=== PATIENT | male | born 1945 | race Caucasian/White ===

== ENCOUNTER 2020-08-15 09:02 | Emergency (ER) | payer MEDICARE, SELFPAY ==
[2020-08-15 09:03] VITALS: BP 136/97; PULSE 69; RESP 15; TEMP 35.9; O2SAT 98; BMI 29.9
[2020-08-15] MEDS: Fluorescein 1 MG STRIP 1 STRIP RIGHT EYE (09:18)
[2020-08-15] MEDS: Tetracaine 0.5% Ophthalmic Bottle 1 DRP RIGHT EYE (09:19)
--- NOTE | 2020-08-15 09:21 | ED.VIS.EYE ---
History of Present Illness Chief Complaint: Eye Problem Informant: Patient Location: Right Eye Onset: Today Context: Gradual Onset Timing: Continuous Current Severity: Mild Maximum Severity: Mild Worsened by: Nothing Relieved by: Nothing Associated Symptoms - Eyes: Burning, Foreign body sensation History of injury: Uncertain Visual correction: Glasses Narrative: 74-year-old male presents to the emergency department with a foreign body sensation in his right eye. He woke up this morning with a foreign body sensation in his right eye. He had no trauma to his eye this morning. 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 He thinks he could have gotten something in his eye at that time however last evening he did not have any significant pain or foreign body sensation. He woke up this morning with worsening symptoms. He has not had any loss of vision visual changes and he has no symptoms in his left eye. Rest of his review of systems at this time are negative. Prior similar symptoms: Yes Recent Illness/Hospitalization: No Past Medical History - Allergies and Home Meds Allergies/Adverse Reactions: Allergies No Known Allergies Allergy (Verified 08/15/20 09:04) Primary Care Physician: Ivy Desai MD [Primary Care Provider] - Acosta Mendez MD [STAFF PHYSICIAN] - 3-5 Days Prior records reviewed: Yes Past Medical History: - - Patient denies any significant past medical history Surgical History: noncontributory Lives: With Family Smoking Status: Never smoker Alcohol: Occasional Drugs: None Review of Systems All systems negative except as indicated General: Denies: Chills, Fever, Sweats Eyes: Reports: - - Right eye foreign body sensation. Denies: Visual changes - bilaterally, Blurred Vision - bilaterally, Diplopia ENT: Denies: Rhinorrhea, Sore throat Cardiovascular: Denies: Chest pain, Palpitations Respiratory: Denies: Dyspnea, Cough, Dyspnea on exertion Gastrointestinal: Denies: Abdominal pain, Nausea, Vomiting, Diarrhea, Melena, Hematochezia Genitourinary: Denies: Dysuria, Hematuria, Frequency Musculoskeletal: Denies: Back pain, Extremity Pain Skin: Denies: Rash, Wounds Neurological: Denies: Headache, Weakness, Numbness Physical Exam Visual Acuity: left: 20/40 - 20/40 right eye and left eye, bilateral: 20/30 - 20/30 both eyes Visual Acuity: Corrected Eyelid: Normal inspection, Right eyelid everted, No foreign body Right Conjunctiva/Sclera: Normal inspection, No foreign body Left Conjunctiva/Sclera: Normal inspection, No foreign body Right Cornea: No foreign body, Tetracaine instilled, Corneal abrasion, Fluorescein dye uptake, - - Negative ulcer negative Marquita sign negative foreign body negative laceration Left Cornea: Normal inspection Extraocular Motion: Normal exam, No pain, No palsy, No nystagmus Anterior chamber: Normal exam, Deep and quiet Posterior Segment: Normal fundoscopic exam, Exam limited by miosis Vital Signs/Narrative: Vital Signs Temp Pulse Resp BP Pulse Ox 08/15/20 09:03 96.7 F L 69 15 136/97 H 98 Inital Vital Signs reviewed: Yes General: Well nourished, Well developed Head: Normocephalic, Atraumatic ENT: Moist mucous membranes, No rhinorrhea Neck: Supple, Nontender Cardiovascular: Regular rate, Regular rhythm, No murmurs Respiratory: No distress, CTA bilaterally, Chest nontender Abdomen: Soft, Nontender, Nondistended, Normal bowel sounds Back: Nontender, Normal Inspection Extremities: Nontender, No edema Skin: Normal color, No rash Neurological: Alert, Oriented x3, Cranial nerves II-XII grossly intact, Normal Strength, Normal Sensation Psychological: Normal affect Diagnostic/Tx/Re-eval - Treatment and Re-Evaluation Tetracaine: right eye Antibiotic: right eye - Medical Decision Making Visual acuity was within normal limits with his glasses on. Tetracaine instilled into right eye. Patient had improvement of symptoms. Fluorescein dye instilled into right eye. There is a small abrasion at 9:00 noted. No foreign bodies. No Marquita sign. Eyelid everted without foreign body seen. Patient reassured. He will be placed on erythromycin ophthalmic. 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 He was advised that if he develops worsening symptoms prior to that to return to the emergency department. Patient agreeable with plan of care. All questions were answered. He was discharged home ED Disposition - Plan for ED Patient: Disposition: Home or Assisted Living Diagnosis: Corneal abrasion, right Instructions: ED Corneal Abrasion Prescriptions: Erythromycin Ophthalmic 1 applic RIGHT EYE TID #1 tube Prescription Printed Referrals: Ivy Desai MD [Primary Care Provider] - Acosta Mendez MD [STAFF PHYSICIAN] - 3-5 Days
--- NOTE | 2020-08-15 09:32 | ED.VISSUMM ---
- ER Visit Summary Date of Service: 08/15/20 Chief Complaint: [Right eye discomfort and foreign body sensation] History of Present Illness: The patient is a 74 M [male presents to the emergency department with discomfort in the right eye. Patient was seen with nurse practitioner Pedrito Cleary. The eyelids were everted no foreign bodies noted. I was stained with floor seen after tetracaine was instilled in the right eye. Nurse practitioner thought there might be a corneal abrasion at 9 o'clock position. 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 Denies any vision changes.] Physical Examination: [HEENT-PERRLA, EOMI. Cranial nerves II through XII grossly intact. TMs clear. Mucous membranes moist. No adenopathy. Right eye-eyelids everted and no foreign bodies noted. Using a slit lamp I was able to evaluate the cornea and there is a corneal abrasion noted at the 9 o'clock position near the limbus. No foreign bodies noted within the abrasion. Cardiovascular-regular rate and rhythm without murmur or ectopy Lungs-clear to auscultation, chest wall stable without crepitus or subcu emphysema Abdomen-normoactive bowel sounds, soft, nontender, no rebound or rigidity, no peritoneal signs. Extremities-intact ?4, normal range of motion, normal pulses, atraumatic] Test Results: [] Emergency Department Course and Treatment: [Patient received gentamicin ophthalmic drops.] Treatment Plan: [Patient to follow-up with ophthalmology in 2 days for a wound check.] Disposition: [Discharged home in stable condition] Impression: [Right eye corneal abrasion] This note was generated with [employer] dictation software. It may contain incorrect words, spelling, and punctuation that were not noted in review of the chart prior to signing ED Disposition - Plan for ED Patient: Disposition: Home or Assisted Living Diagnosis: Corneal abrasion, right Instructions: ED Corneal Abrasion Prescriptions: Erythromycin Ophthalmic 1 applic RIGHT EYE TID #1 tube Prescription Printed Referrals: Ivy Desai MD [Primary Care Provider] - Acosta Mendez MD [STAFF PHYSICIAN] - 3-5 Days
== END 2020-08-15 09:56 | disposition home or self-care (01) ==
LOC: ED 09:42
PROVIDERS: Emergency Provider Physician Assistant Medical; PCP Internal Medicine
DX: S05.01XA Injury of conjunctiva and corneal abrasion without foreign body, right eye, initial encounter (principal); X58.XXXA Exposure to other specified factors, initial encounter; Y93.9 Activity, unspecified; Y92.9 Unspecified place or not applicable
CPT/HCPCS: 99283

== ENCOUNTER 2020-10-10 12:21 | Emergency (ER) | payer MEDICARE, SELFPAY ==
[2020-10-10 12:23] VITALS: BP 132/77; PULSE 94; RESP 24; TEMP 36.4; O2SAT 95; BMI 24.1
[2020-10-10 12:39] VITALS: O2SAT 95
--- NOTE | 2020-10-10 12:46 | ED.DCSUM_ITS ---
- ER Visit Summary Date of Service: 10/10/20 Chief Complaint: Cough History of Present Illness: The patient is a [address] Desai. He reports that he has had a cough for the past 10 days. He tested positive for Covid approximately 1 week ago. States his cough is productive yellow sputum without blood. He denies any fever, chills, chest pain, or shortness of breath at rest. He reports that he is mildly short of breath when I walk all over the place. He has been quarantining. He denies any other complaints. Physical Examination: Vitals: Stable. Afebrile. General: Well-nourished and well-developed. Head: Normocephalic atraumatic. Neck: Supple, no lymphadenopathy. No JVD. Nontender. Cardiovascular: Regular rate and rhythm. No murmurs. Respiratory: No respiratory distress. Clear to auscultation bilaterally. Abdominal: Soft, nontender, nondistended, normal bowel sounds. No guarding, rebound, or peritoneal signs. Back: Nontender. Extremities: Nontender, no edema. Skin: Normal color, no rash. Neurologic: Alert and oriented ?3. Cranial nerves II through XII are intact. Normal strength and sensation. Psych: Normal affect. Test Results: CBC shows segmented neutrophils 81 lymphocytes of 10. Chem-7 shows a sodium 135 and calcium of 8.3. One view chest x-ray read by the radiologist is an early left lower lobe infiltrate. In my opinion there is no acute disease. Emergency Department Course and Treatment: Patient is resting comfortably. Ambulatory pulse ox is 96%. The patient was treated with doxycycline. Treatment Plan: Patient will be discharged with doxycycline. Instructed to continue to quarantine. Instructed to follow-up with his primary care physician in 10 to 14 days if not improving. Return to the emergency department for any worsening symptoms. Disposition: To home in improved and stable condition. Impression: One. COVID-19 positive. This note was generated with [employer] dictation software. It may contain incorrect words, spelling, and punctuation that were not noted in review of the chart prior to signing ED Disposition - Plan for ED Patient: Instructions: ED Upper Resp Infec Abx Tx Prescriptions: Doxycycline 100 mg PO BID #14 capsule Referrals: Ivy Desai MD [Primary Care Provider] - 10-14 Days if not better
--- NOTE | 2020-10-10 12:49 | RAD_ITS ---
STUDY: X-RAY CHEST REASON FOR EXAM: Male, 74 years old. COVID +, and quot;I THINK I NEED AN XRAY. and quot; COMPLAINS OF INCREASE IN FATIGUE. TECHNIQUE: Frontal view of the chest COMPARISON: None. FINDINGS: There is an ill-defined left mid and lower lung zone opacity. Remainder the lungs are clear. There is no pneumothorax, pulmonary edema, cardiomegaly or pleural effusions. Sternotomy wires and coronary graft is present. Osseous structures are intact. RAD/Chest 1 View (Portable) IMPRESSION: Probably early left lower lung pneumonia. Electronically Signed: Lenin Tripp, at 13:14 EST Tel , Service support ,
[2020-10-10 13:16] LABS: Absolute Lymphocyte Count 0.48 X10^3/uL (0.83-4.51); Absolute Neutrophil Count 3.8 X10^3/uL (2.0-7.7); Basophil# 0.02 X10^3/uL; Basophil% 0.4 % (0-1); Hematocrit 46.5 % (40-54); Hemoglobin 15.6 g/dL (13.0-16.5); Lymphocyte # 0.48 X10^3/ul (4.0); Lymphocyte % 10.2 % (19-41); Mean Corp Hgb Conc 33.5 g/dL (32-36); Mean Corpuscular Hgb 31.8 pg (27.0-32.0); Mean Corpuscular Volume 94.7 fL (80-94); Mean Platelet Vol. 10.9 fl (6.2-12.0); Monocyte# 0.38 X10^3/uL; Monocyte% 8.1 % (0-10); NRBC Flagged by Analyzer 0 % (0-5); Neutrophil # 3.82 X10^3/uL (2.7-7.7); Neutrophil % 81.1 % (47-70); POSITIVE DIFFERENTIAL YES; Platelet Count 152 K/mm3 (150-450); RBC Distribution Width CV 12.7 % (11.6-14.6); RBC Distribution Width SD 44.4 fl (35.1-43.9); Red Blood Count 4.91 M/mm3 (4.6-6.2); White Blood Count 4.7 K/mm3 (4.4-11.0)
[2020-10-10 13:20] LABS: Differential Indicated SCAN CRITERIA MET
[2020-10-10 13:28] LABS: Anion Gap 6 (5-15); BUN 17 mg/dL (7-18); BUN/Creat Ratio 20.5 RATIO (10-20); Calcium,Total 8.3 mg/dL (8.5-10.1); Chloride 105 mmol/L (98-107); Creatinine, Serum 0.83 mg/dL (0.70-1.30); EST Glomerular Filtration Rate 96 mL/min (>60); Est Glom Filt Rate - Afr Amer 116 mL/min (>60); Estimated Creatinine Clearance 67.92 ml/min; Glucose 98 mg/dL (74-106); Sodium Level 135 mmol/L (136-145)
[2020-10-10 13:34] LABS: Differential Comment SCANNED
[2020-10-10 13:45] VITALS: O2SAT 97
[2020-10-10 13:47] VITALS: BP 158/75; PULSE 74; RESP 20; O2SAT 97
[2020-10-10] MEDS: Doxycycline 100 MG CAPSULE PO (14:23)
[2020-10-10 14:24] VITALS: BP 118/88
== END 2020-10-10 14:24 | disposition home or self-care (01) ==
LOC: ED 13:28
PROVIDERS: Emergency Provider Emergency Medicine; PCP Internal Medicine
DX: U07.1 COVID-19 (principal); I10 Essential (primary) hypertension; I25.10 Atherosclerotic heart disease of native coronary artery without angina pectoris; E78.00 Pure hypercholesterolemia, unspecified; Z95.1 Presence of aortocoronary bypass graft; Z79.82 Long term (current) use of aspirin; Z79.899 Other long term (current) drug therapy; Z87.891 Personal history of nicotine dependence
CPT/HCPCS: 71045; 80048; 85025; 99285; A4216

== ENCOUNTER 2022-05-27 09:07 | Emergency (ER) | payer MEDICARE, SELFPAY ==
[2022-05-27 09:07] VITALS: BP 147/73; PULSE 66; RESP 16; TEMP 36.6; O2SAT 95; BMI 29.7
--- NOTE | 2022-05-27 09:22 | RAD_ITS ---
STUDY: X-RAY - LUMBAR SPINE REASON FOR EXAM: Male, 76 years old. Lower back pain TECHNIQUE: 3 view(s) of the lumbar spine were obtained. COMPARISON: Comparison is made with prior study dated 10/13/2016. FINDINGS: Normal lumbar lordosis. There is no substantial scoliosis. Grade 1 anterior listhesis of L4 on L5. There is multilevel endplate spondylosis of the lumbar vertebrae. There is multi-level degenerative disc disease with multi-level disc space narrowing. There is atherosclerotic calcification of the abdominal aorta without a demonstrated aneurysm. RAD/Lumbar Spine 2 or 3 Views IMPRESSION: Degenerative changes of the spine, as detailed above. Stable anterior listhesis of L4 on L5. There is been no change since prior study. Electronically Signed: Vel Thrasher MD at 10:34 EDT ,
--- NOTE | 2022-05-27 09:23 | EDS_ITS ---
HPI <MAGDA Mortensen - Last Filed: 05/27/22 10:44> History of Present Illness Chief Complaint: Flank Pain Narrative Narrative: 76-year-old male with history of hyper tension, hyperlipidemia presents to the emergency department with ongoing lower back pain. Patient states the pain is is much worse when he gets out of bed in the morning, he takes a Tylenol, a Pyridium, eats breakfast, and then the pain relieves itself. Today, the patient complains of lingering pain to his lower back and is here for evaluation. Patient denies any known injury, patient has been taking Pyridium for several years because he thinks that this is what he takes when he feels like he has a urinary tract infection. Patient when at rest is in no pain, patient has worsening pain with any bending or rotation. Denies any weakness to his lower extremities, bowel or bladder incontinence, fever chills PFSH <MAGDA Mortensen - Last Filed: 05/27/22 10:44> PFSH Medical History (Updated 05/27/22 @ 10:44 by MAGDA Mortensen) Kidney stones Home Medications aspirin 81 mg chewable tablet 81 mg PO DAILY@0800 10/10/20 [History Last Taken Unknown] atorvastatin 40 mg tablet 40 mg PO QHS 10/10/20 [History Last Taken Unknown] carvedilol 3.125 mg tablet 3.125 mg PO BID 10/10/20 [History Last Taken Unknown] cholecalciferol (vitamin D3) 25 mcg (1,000 unit) capsule 25 mcg PO DAILY 05/27/22 [History Last Taken Unknown] Allergy/AdvReac Type Severity Reaction Status Date / Time No Known Allergies Allergy Verified 05/27/22 09:09 Surgical History (Updated 05/27/22 @ 09:30 by Rula Soler) H/O heart bypass surgery Social History Smoking Status: Former smoker ROS <MAGDA Mortensen - Last Filed: 05/27/22 10:44> ROS ED ROS Narrative Constitutional: Negative for fever, chills, weight loss, weakness Eyes: Negative for vision loss, vision change, double vision ENT: Negative for any sore throat, ear pain, congestion Cardiovascular: Negative for any chest pain, tightness, palpitations Respiratory: Negative for any cough, sputum production, hemoptysis, dyspnea, dyspnea on exertion, orthopnea Gastrointestinal: Negative for any abdominal pain, nausea, vomiting, diarrhea, constipation, blood in stool, blood in vomit : Negative for any urinary frequency, dysuria, retention, blood in urine Muscle skeletal: Negative for any muscle joint pain, stiffness, myalgias, arthralgias, neck pain. Positive for back pain Neurological: Negative for any headache, syncope, numbness or tingling, dizziness Skin: Negative for any rashes, lumps, itching, abrasions, lacerations Psychiatric: Negative for any depression, anxiety, stress, suicidal ideation, homicidal ideation Hematologic: Negative for any easy bruising, excessive bruising, easy bleeding Allergies: Negative for any eczema, hives, rash EXAM <MAGDA Mortensen - Last Filed: 05/27/22 10:44> Physical Exam Narrative Exam Narrative: Vital signs reviewed. HEET: Head normocephalic atraumatic, TMs clear bilaterally. Posterior pharynx is clear, moist mucous membranes. Nares clear bilaterally. Neck: Supple with no lymphadenopathy or tenderness. No signs of meningismus, negative jolt sign. Cardiac: Regular rate and rhythm no murmurs gallops or rubs, equal peripheral pulses bilaterally. Respiratory: Lungs clear to auscultation bilaterally. No chest tenderness. Abdomen: Soft, nontender, nondistended. No abdominal bruit or pulsatile masses. No hepatosplenomegaly Extremities: No peripheral edema, no signs of gross trauma or deformity. Active full range of motion of all extremities. Equal strength bilaterally Neuro: Cranial nerves II through XII intact, no focal neurological deficits. Skin: Clean dry and intact with no rash, purpura, petechiae, vesicles or pustules. Backs/flank: No CVA tenderness, no midline spinal tenderness, no deformity. No pain on palpation. Negative for any signs of trauma. Psych: Normal mood and affect. No SI, HI or acute psychosis. Const Vital Signs: 05/27/22 09:07 Temperature 97.8 F Temperature Source Temporal Pulse Rate 66 Respiratory Rate 16 Blood Pressure 147/73 H Blood Pressure Mean 97 Pulse Ox 95 Oxygen Delivery Method Room Air <Dr. Edgar Mata MD - Last Filed: 05/27/22 11:05> Physical Exam Const Vital Signs: 05/27/22 09:07 Temperature 97.8 F Temperature Source Temporal Pulse Rate 66 Respiratory Rate 16 Blood Pressure 147/73 H Blood Pressure Mean 97 Pulse Ox 95 Oxygen Delivery Method Room Air [facility] <MAGDA Mortensen - Last Filed: 05/27/22 10:44> [facility] Lab Data Labs: Laboratory Results - last 24 hr 05/27/22 10:00 Urine Color SEE COMMENT BELOW Urine Clarity Sl. Cloudy Urine pH 6.5 Ur Specific [place] 1.010 Urine Protein Negative Urine Glucose (UA) Normal Urine Ketones Negative Urine Occult Blood Negative Urine Nitrite Positive H Urine Bilirubin 6 H Urine Urobilinogen 12 H Ur Leukocyte Esterase 25 H Urine RBC 0 SEEN Urine WBC 0 SEEN Ur Squamous Epith Cells 0-5 SEEN Urine Bacteria 0 SEEN Urine Mucus 0 SEEN Radiography Diagnostic Testing: Clinical Impression(s) from Imaging Studies Lumbar Spine X-Ray 05/27/22 09:22 IMPRESSION: Degenerative changes of the spine, as detailed above. Stable anterior listhesis of L4 on L5. There is been no change since prior study. Electronically Signed: Vel Thrasher MD at 10:34 EDT , Treatment and Re-Evaluation Narrative: Patient appears well, patient appears nontoxic, vital signs are stable. Patient presents to the emergency department with complaints of left lower back pain. Patient did receive a urinalysis, it was positive for nitrates, leukocyte Estrace of 25 however there is no red blood cells, white blood cells or bacteria. This was sent for culture. Patient's physical examination was consistent with a muscle skeletal lumbar strain. The patient did receive x-rays of the lower lumbar spine, this was interpreted by the ER physician and show some degenerative changes of the spine stable anterior listhesis of L4 on L5. There is been no change since the prior study. At this time, patient be diagnosed with a muscle skeletal lumbar strain, he is instructed to continue to use Tylenol as well as perform gentle stretching, ice and heat. He is instructed to return for any worsening symptoms. His physical examination yielded no red flag signs, patient is stable for discharge. <Dr. Edgar Mata MD - Last Filed: 05/27/22 11:05> [facility] Narrative Medical decision making narrative: I have personally performed a face to face assessment of the patient and have reviewed the DARCIE Note. I performed a substantive portion of the visit including all aspects of the following. My becerra findings include: History is consistent with left lower back pain. Its not really flank this is very low in the back. This been going on for a week or so. He has had it before. Normally he gets up in the morning and it sore but he takes Tylenol and moves around he gets better. It took a little longer to get better this morning. Patient does tell me that he has been carrying a lot of firewood up and down his steps to store it for the winter. He has not fallen or twisted but it is sore when he does this. If he leans forward the back pain is worse. It is better if he lays back. He has no numbness tingling weakness bowel or bladder dysfunction. He has tried Pyridium because he had symptoms like this once with a UTI but he has no urinary symptoms whatsoever. No fevers or chills. Exam is mild low lumbar paraspinal tenderness. No CVA tenderness. No skin c hanges. No buttock or sciatic notch tenderness. Normal strength and gait and sensation distally. Abdomen is completely benign. No mass or bruit. Medical Decison Making x-ray shows some arthritic changes. Urine has some nitrites but 0 white cells. He has no urinary symptoms. We will send this for culture but I will not treat this acutely. I think his symptoms are really myofascial strain from increased lifting and carrying of firewood up and down steps multiple times a day for the past week. Lab Data Labs: Laboratory Results - last 24 hr 05/27/22 10:00 Urine Color SEE COMMENT BELOW Urine Clarity Sl. Cloudy Urine pH 6.5 Ur Specific [place] 1.010 Urine Protein Negative Urine Glucose (UA) Normal Urine Ketones Negative Urine Occult Blood Negative Urine Nitrite Positive H Urine Bilirubin 6 H Urine Urobilinogen 12 H Ur Leukocyte Esterase 25 H Urine RBC 0 SEEN Urine WBC 0 SEEN Ur Squamous Epith Cells 0-5 SEEN Urine Bacteria 0 SEEN Urine Mucus 0 SEEN Radiography Diagnostic Testing: Clinical Impression(s) from Imaging Studies Lumbar Spine X-Ray 05/27/22 09:22 IMPRESSION: Degenerative changes of the spine, as detailed above. Stable anterior listhesis of L4 on L5. There is been no change since prior study. Electronically Signed: Vel Thrasher MD at 10:34 EDT , Discharge Plan Triage Chief Complaint: Flank Pain ED Midlevel Provider: Jordon Kwok ED Provider: Edgar Mata Dx/Rx/DC Orders Clinical Impression: Lumbar spine strain Instructions: Treating?Strains and Sprains, Understanding Lumbosacral Strain Prescriptions: No Action atorvastatin 40 MG tablet 40 mg PO QHS carvedilol 3.125 MG tablet 3.125 mg PO BID aspirin 81 MG tablet,chewable 81 mg PO DAILY@0800 cholecalciferol (vitamin D3) 25 mcg (1,000 unit) Capsule 25 mcg PO DAILY Primary Care Provider: Ivy Desai Referrals: Ivy Desai MD [Primary Care Provider] - Activity Restrictions/Additional Instructions: Continue to use Tylenol, ice and heat and perform gentle stretching Print Language: Somali Disposition Disposition: Home, Self Care
[2022-05-27 10:11] LABS: Bacteria 0 SEEN /hpf (None Seen); Mucous, Urine 0 SEEN /hpf (<or=2+); Red Blood Cells-Urine 0 SEEN /hpf (0-5); White Blood Cells 0 SEEN /hpf (0-5)
[2022-05-27 10:14] LABS: Glucose, Dipstick Normal (Normal); Ketone-Dipstick Negative (Negative); Leukocyte Esterase-Dipstick 25 /ul (Negative); Nitrite-Dipstick Positive (Negative); Occult Blood-Urine Negative /ul (Negative); Protein-Dipstick Negative (Negative); Urine Clarity Sl. Cloudy (Clear); Urine Urobilinogen 12 mg/dl (Normal); Urine pH 6.5 (5.0 - 8.0)
[2022-05-27 10:16] LABS: Color, Urine SEE COMMENT BELOW (Yellow); Urine Bilirubin Dipstick 6 mg/dL (Negative)
[2022-05-27 10:22] LABS: Squamous Epithelial Cells - UA 0-5 SEEN /hpf (0-5)
[2022-05-27 11:02] VITALS: RESP 18
== END 2022-05-27 11:07 | disposition home or self-care (01) ==
PROVIDERS: Nurse Practitioner; Emergency Provider Emergency Medicine; PCP Internal Medicine; Visit Provider Emergency Medicine
DX: S39.012A Strain of muscle, fascia and tendon of lower back, initial encounter (principal); E78.5 Hyperlipidemia, unspecified; Z87.891 Personal history of nicotine dependence; Z87.442 Personal history of urinary calculi; I10 Essential (primary) hypertension; X58.XXXA Exposure to other specified factors, initial encounter; Z79.82 Long term (current) use of aspirin; Z79.899 Other long term (current) drug therapy
CPT/HCPCS: 72100; 81001; 87086; 99283; A4216

== ENCOUNTER 2023-08-20 11:15 | Emergency (ER) | payer MEDICARE, SELFPAY ==
[2023-08-20 11:16] VITALS: BP 118/77; PULSE 73; RESP 18; TEMP 36.1; O2SAT 96; BMI 29.1
--- NOTE | 2023-08-20 11:57 | EDS_ITS ---
HPI <VESTA Adame - Last Filed: 08/20/23 13:31> History of Present Illness Chief Complaint: Laceration Narrative Narrative: Patient presenting today with a laceration to his right third and fourth finger that he got earlier today from the propeller on a toy electric airplane. He reports that he has had a tetanus within the last 5 years, he takes a daily aspirin, he denies any other injury. PFSH <VESTA Adame - Last Filed: 08/20/23 13:31> [facility] Medical History Kidney stones Home Medications aspirin 81 mg chewable tablet 81 mg PO DAILY@0800 10/10/20 [History Last Taken Unknown] atorvastatin 40 mg tablet 40 mg PO QHS 10/10/20 [History Last Taken Unknown] carvedilol 3.125 mg tablet 3.125 mg PO BID 10/10/20 [History Last Taken Unknown] cholecalciferol (vitamin D3) 25 mcg (1,000 unit) capsule 25 mcg PO DAILY 05/27/22 [History Last Taken Unknown] naproxen 375 mg tablet,delayed release (EC-Naproxen) 375 mg PO BID 08/05/22 [History Last Taken Unknown] Allergy/AdvReac Type Severity Reaction Status Date / Time No Known Allergies Allergy Verified 08/20/23 11:18 Surgical History H/O heart bypass surgery Social History Smoking Status: Former smoker ROS <VESTA Adame - Last Filed: 08/20/23 13:31> ROS ED Constitutional Constitutional ED: Denies chills or fever(s) Cardiovascular Cardiovascular: Denies chest pain Respiratory/Chest Respiratory/Chest: Denies cough or dyspnea Gastrointestinal Gastrointestinal: Denies abdominal pain, nausea or vomiting Musculoskeletal Musculoskeletal: Denies arthralgias or myalgias Integumentary Denies laceration Neurologic Neurologic: Denies paresthesias or weakness EXAM <VESTA Adame - Last Filed: 08/20/23 13:31> Physical Exam Const Vital Signs: 08/20/23 11:16 Temperature 97 F L Temperature Source Temporal Pulse Rate 73 Respiratory Rate 18 Blood Pressure 118/77 Blood Pressure Mean 90 Pulse Ox 96 Oxygen Delivery Method Room Air Positive well nourished, well developed and no apparent distress General Appearance ED: well developed HEENT Reports normocephalic and head/scalp atraumatic Mouth ED: Yes moist mucous membranes normal Eyes PERRL and EOMs intact bilaterally Neck full ROM and supple Chest Wall inspection of chest normal Resp normal respiratory effort and clear to auscultation bilaterally Cardio regular rate and regular rhythm GI soft to palpation, non-tender, non-distended and no masses Back/Spine normal ROM and normal to inspection Extremity normal to inspection and full ROM Extremity Narrative: 2 lacerations to the dorsal aspect of the R third finger, 1 laceration to the dorsal aspect of the right fourth finger. full flexion and extension at the MCP, PIP, and DIP joints of the right hand, radial pulse 2+ and equal bilaterally, good capillary refill, sensation intact Neuro oriented x3, CN's II-XII intact bilaterally, moves all extremities, no focal motor deficits and no sensory deficits noted Sensorium / Orientation: awake and alert Psych mental status grossly normal and thought process normal [facility] <VESTA Adame - Last Filed: 08/20/23 13:31> [facility] Narrative Medical decision making narrative: Patient presenting with a laceration to his right third and fourth fingers. He is well-appearing and in no acute distress, vitals are unremarkable. Lacerations have been soaked in soapy water and will be extensively irrigated with normal saline and cleaned with chlorhexidine. Digital blocks will be performed using 1% lidocaine and lacerations will be repaired with sutures. He will be bandaged with bacitracin ointment. He has been educated on signs of infection to look out for and reasons to return. He will be discharged home in stable condition and is comfortable with plan. He is to have stitches removed in 7 days. I have personally performed a face to face assessment of the patient and have reviewed the DARCIE Note. I performed a substantive portion of the visit including all aspects of the following. My becerra findings include: History is sustained a laceration to his fingers of the right hand due to a model airplane breaking. Tetanus he believes is up-to-date. Exam is multiple lacerations but no apparent extensor tendon injury. No nail injuries. Bleeding controlled. Medical Decison wounds will be cleansed and sutured. Wound care discussed with patient. Monitor for infection. <Dr. Logan Cedeño DO - Last Filed: 08/20/23 12:55> [facility] Narrative Medical decision making narrative: fix pe Patient presenting with a laceration to his right third and fourth fingers. He is well-appearing and in no acute distress, vitals are unremarkable. Lacerations have been soaked in soapy water and will be extensively irrigated with normal saline and cleaned with chlorhexidine. Digital blocks will be performed using 1% lidocaine and lacerations will be repaired with sutures. He will be bandaged with bacitracin ointment. He has been educated on signs of infection to look out for and reasons to return. He will be discharged home in stable condition and is comfortable with plan. He is to have stitches removed in 7 days. I have personally performed a face to face assessment of the patient and have reviewed the DARCIE Note. I performed a substantive portion of the visit including all aspects of the following. My becerra findings include: History is sustained a laceration to his fingers of the right hand due to a model airplane breaking. Tetanus he believes is up-to-date. Exam is multiple lacerations but no apparent extensor tendon injury. No nail injuries. Bleeding controlled. Medical Decison wounds will be cleansed and sutured. Wound care discussed with patient. Monitor for infection. Procedures <VESTA Adame - Last Filed: 08/20/23 13:31> Lacerations laceration: Depth: Sub Q Shape: Linear Laceration repair: Digital block, Irrigated and Lidocaine Suture Information: Ethilon, Simple and 5-0 Comment: Laceration to the right fourth finger is 1.5 cm and linear, subcutaneous, 2 sutures were placed Laceration to right third finger is 3.5 cm and linear, subcutaneous, 4 sutures were placed Laceration to right third finger is 3 cm and complex, subcutaneous, 5 sutures were placed Discharge Plan Triage Chief Complaint: Laceration ED Midlevel Provider: Kathi Ding ED Provider: Logan Cedeño Dx/Rx/DC Orders Clinical Impression: Laceration of finger Instructions: ED Laceration, Hand: All Closures Prescriptions: No Action naproxen [EC-Naproxen] 375 mg tablet,delayed release (DR/EC) 375 mg PO BID atorvastatin 40 MG tablet 40 mg PO QHS carvedilol 3.125 MG tablet 3.125 mg PO BID aspirin 81 MG tablet,chewable 81 mg PO DAILY@0800 cholecalciferol (vitamin D3) 25 mcg (1,000 unit) Capsule 25 mcg PO DAILY Primary Care Provider: Ivy Desai Referrals: Ivy Desai MD [Primary Care Provider] - 7 Days for suture removal Activity Restrictions/Additional Instructions: Have stitches removed in 7 days, return for any signs of infection. Disposition Disposition: Home, Self Care Discharge Date/Time: 08/20/23 12:49
[2023-08-20] MEDS: Lidocaine 1% (20 ml mdv) 20 ML Vial 10 ML INFILT (12:48)
== END 2023-08-20 12:49 | disposition home or self-care (01) ==
PROVIDERS: Emergency Provider Emergency Medicine; PCP Internal Medicine; Visit Provider Emergency Medicine
DX: S61.212A Laceration without foreign body of right middle finger without damage to nail, initial encounter (principal); Z87.891 Personal history of nicotine dependence; W26.8XXA Contact with other sharp object(s), not elsewhere classified, initial encounter; S61.214A Laceration without foreign body of right ring finger without damage to nail, initial encounter
CPT/HCPCS: 13132; 12002; 99282

== ENCOUNTER 2023-08-27 08:37 | Emergency (ER) | payer MEDICARE, SELFPAY ==
[2023-08-27 08:38] VITALS: BP 134/70; PULSE 63; RESP 18; TEMP 36; O2SAT 99
--- NOTE | 2023-08-27 09:04 | EDS_ITS ---
HPI History of Present Illness Chief Complaint: Suture Remv Narrative Narrative: 77-year-old male presents for suture removal from lacerations he sustained approximately 7 days ago. He had lacerations to his right third and fourth digits from a toy airplane propeller. He denies any fever or drainage from the wounds, and states that his lacerations have been healing well. He presents for suture removal. [facility] Medical History Kidney stones Home Medications aspirin 81 mg chewable tablet 81 mg PO DAILY@0800 10/10/20 [History Last Taken Unknown] atorvastatin 40 mg tablet 40 mg PO QHS 10/10/20 [History Last Taken Unknown] carvedilol 3.125 mg tablet 3.125 mg PO BID 10/10/20 [History Last Taken Unknown] cholecalciferol (vitamin D3) 25 mcg (1,000 unit) capsule 25 mcg PO DAILY 05/27/22 [History Last Taken Unknown] naproxen 375 mg tablet,delayed release (EC-Naproxen) 375 mg PO BID 08/05/22 [History Last Taken Unknown] Allergy/AdvReac Type Severity Reaction Status Date / Time No Known Allergies Allergy Verified 08/20/23 11:18 Surgical History H/O heart bypass surgery Social History Smoking Status: Former smoker ROS ROS ED ROS Narrative Constitutional: No fever, no chills. HEENT: No sore throat. No neck pain. No loss of vision. No rhinorrhea. Cardiovascular: No chest pain. No palpitations. No pedal edema. Respiratory: No cough, no shortness of breath. Abdominal: No abdominal pain. No nausea. No vomiting. Genitourinary: No dysuria. No hematuria. Musculoskeletal: No myalgias. No arthralgias. Neurologic: No headaches. No dizziness. No lightheadedness. Skin: No rash. No change in color. No problems with sutures, no drainage of pus or erythema surrounding. Psychiatric: No depression. No anxiety. EXAM Physical Exam Narrative Exam Narrative: Afebrile. Vital signs noted. HEENT: Normocephalic. Atraumatic. PERRL, EOMI. Neck soft and supple. No point tenderness or step off. Cardiovascular: Regular rate and rhythm. No murmurs, rubs, or gallops appreciated. Respiratory: No tachypnea. Lungs clear to auscultation bilaterally. Gastrointestinal: Abdomen soft, nontender, with normoactive bowel sounds. No rebound or guarding. Neurological: Awake. Alert. Nonfocal, nonlateralizing. Skin: No rash. Normal color. No pallor. Inspection of the right fourth and third fingers show 2 lacerations on the third digit and one laceration on the fourth digit that are closed with sutures, no erythema or fluctuance. No purulent drainage. Musculoskeletal: No pedal edema. Full range of motion extremities. Good capillary refill of fingers. Const Vital Signs: 08/27/23 08:38 Temperature 96.8 F L Temperature Source Temporal Pulse Rate 63 Respiratory Rate 18 Blood Pressure 134/70 H Blood Pressure Mean 91 Pulse Ox 99 Oxygen Delivery Method Room Air MDM MDM MDM Narrative Medical decision making narrative: I reviewed the patient's prior records. He had a total of 11 sutures placed. There were 5 sutures and one laceration on the third digit, 4 and the other laceration, and on the fourth digit there were 2 sutures. Sutures were easily removed by myself and there was no evidence of dehiscence except for perhaps a small area on the laceration closest to the nailbed. At this point in time, I feel he be discharged to follow-up with his primary care physician as needed. Return instructions to the emergency department were reviewed. Disposition is discharged home in stable condition. History & Record Review Additional record(s) reviewed:: Prior ED visit Discharge Plan Triage Chief Complaint: Suture Remv ED Provider: Pio Bryant Dx/Rx/DC Orders Clinical Impression: Laceration of finger, Encounter for removal of sutures Instructions: Sutr or Stap Removal Prescriptions: No Action naproxen [EC-Naproxen] 375 mg tablet,delayed release (DR/EC) 375 mg PO BID atorvastatin 40 MG tablet 40 mg PO QHS carvedilol 3.125 MG tablet 3.125 mg PO BID aspirin 81 MG tablet,chewable 81 mg PO DAILY@0800 cholecalciferol (vitamin D3) 25 mcg (1,000 unit) Capsule 25 mcg PO DAILY Primary Care Provider: Ivy Desai Referrals: Ivy Desai MD [Primary Care Provider] - As Needed Disposition Disposition: Home, Self Care
== END 2023-08-27 09:22 | disposition home or self-care (01) ==
PROVIDERS: Emergency Provider Emergency Medicine; PCP Internal Medicine; Visit Provider Emergency Medicine
DX: Z48.02 Encounter for removal of sutures (principal); Z87.891 Personal history of nicotine dependence
CPT/HCPCS: 99282